=== PATIENT | female | born 1995 | race African-American/Black ===

== ENCOUNTER 2018-08-24 21:58 | Emergency (ER) | payer SELFPAY ==
[~2018-08-24] VITALS: Ht 167.6 cm; Wt 75.3 kg
[2018-08-24 22:06] VITALS: BP 134/84
--- NOTE | 2018-08-24 22:15 | NUR ---
PT BIB [facility] AND AMBULATED TO ER BED #3 WITH A STEADY GAIT. PT WANTED TO USE THE BATHROOM. URINE SAMPLE OBTAINED AND SENT TO LAB.
--- NOTE | 2018-08-24 22:16 | NUR ---
PT STATED THAT SHE DID NOT WANT TO BE SEEN. NOTIFIED. PT WANTED HER CELL PHONE CHARRGED. PT'S CELL PHONE WAS CHARGED A LITTLE BIT AND GIVEN TO THE PT DUE TO WANTING TO LEAVE WITHOUT BEING SEEN.
--- NOTE | 2018-08-24 22:40 | NUR ---
PT NOW DECIDED TO BE SEEN BY . DR CLARK WAS NOTIFIED.
--- NOTE | 2018-08-24 22:48 | NUR ---
PT NOW WANTS TO LEAVE WITHOUT BEING SEEN. ID BAND REMOVED AND PT IS CHANGING.
--- NOTE | 2018-08-24 22:51 | NUR ---
PT AMBULATED OUT WITH A STEADY GAIT. B RUMA, PAC NOTIFIED.
== END 2018-08-24 22:52 | disposition left against medical advice (07) ==
LOC: ER 22:03
DX: Z53.21 Procedure and treatment not carried out due to patient leaving prior to being seen by health care provider (principal); R51 Headache; J45.909 Unspecified asthma, uncomplicated; V49.69XA Unspecified car occupant injured in collision with other motor vehicles in traffic accident, initial encounter; Y93.89 Activity, other specified; Y92.413 State road as the place of occurrence of the external cause; Y99.8 Other external cause status